=== PATIENT | female | born 1955 | race African-American/Black ===

== ENCOUNTER 2019-12-30 12:47 | Emergency (ER) | payer MEDICAID, SELFPAY ==
[2019-12-30 12:49] VITALS: BP 133/101; PULSE 85; RESP 17; TEMP 36.9; O2SAT 98; BMI 26.4
--- NOTE | 2019-12-30 13:54 | RAD_ITS ---
STUDY: X-RAY - CERVICAL SPINE REASON FOR EXAM: Female, 64 years old. BILAT NECK AND SHOULDER PAIN. HX FALL TECHNIQUE: 3 view(s) of the cervical spine were obtained. COMPARISON: None FINDINGS: Normal anterior atlantoaxial articulation. Normal odontoid process. There is straightening of the normal cervical lordosis. There is multi-level endplate spondylosis. There is multi-level degenerative disc disease with multilevel disc space narrowing. Normal visualized intervertebral neuroforamina. Facet joint osteoarthritis. The soft tissue structures are unremarkable. RAD/Cerv Spine 2 or 3 Views IMPRESSION: Multilevel disc space narrowing and spondylosis. Electronically Signed: Amrit Calero, at 15:03 EST , Service support ,
--- NOTE | 2019-12-30 13:54 | RAD_ITS ---
STUDY: X-RAY CHEST REASON FOR EXAM: Female, 64 years old. BILAT NECK AND SHOULDER PAIN. HX FALL TECHNIQUE: PA and lateral views of the chest. COMPARISON: None. FINDINGS: Hyperinflation. Scattered calcified granulomas. No acute abnormality is seen. There is no demonstrated pleural abnormality. Normal size heart. Normal mediastinum and faustino. Normal visualized pulmonary arteries. Normal visualized aortic arch and descending thoracic aorta. There are degenerative changes of the visualized thoracic spine. Mild dextroscoliosis. Normal visualized ribs, clavicles, and shoulders. There is no demonstrated abnormality of the visualized soft tissue structures of the upper abdomen. RAD/Chest PA and Lateral IMPRESSION: Hyperinflation. No acute abnormality is seen. Electronically Signed: Amrit Calero, at 15:03 EST , Service support ,
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
[2019-12-30 15:31] VITALS: BP 141/76; PULSE 87; RESP 17; TEMP 36.6; O2SAT 97
== END 2019-12-30 15:31 | disposition home or self-care (01) ==
PROVIDERS: Emergency Provider Emergency Medicine
DX: M79.10 Myalgia, unspecified site (principal); W01.0XXA Fall on same level from slipping, tripping and stumbling without subsequent striking against object, initial encounter
CPT/HCPCS: 71046; 72040; 99282